=== PATIENT | male | born 1960 | race Caucasian/White ===

== ENCOUNTER 2019-05-24 10:05 | Day surgery (SDC) | payer OTHER, SELFPAY ==
[2019-05-23 09:24] VITALS: BMI 33.0
[2019-05-24] VITALS (8 sets, daily range): BP systolic 124–151; BP diastolic 74–92; PULSE 70–88; RESP 11–15; TEMP 35.6–36.8; O2SAT 93–98; BMI 33.0
[2019-05-24] MEDS: LACTATED RINGERS 1,000 ML 42 ML IV ×2 (10:33→13:55)
[2019-05-24] MEDS: fentaNYL 100 MCG/2 ML INJ 50 MCG IV ×2 (12:23→12:33)
[2019-05-24] MEDS: MIDAZOLAM 2 MG/2 ML VIAL IV (12:23)
--- NOTE | 2019-05-24 12:45 | SUR.PREOP ---
Block start time [1323] . Monitoring initiated and maintained throughout procedure. Oxygen and medications given per anesthesiologist instructions. Patient remained stable throughout procedure, no adverse reactions noted. Block end time [1333].
[2019-05-24] MEDS: CEFAZOLIN 2 GM/100 ML FROZ.PIGGY IV (12:47)
--- NOTE | 2019-05-24 12:53 | PM.PREOP ---
Pre-operative Note Interval Note History & Physical reviewed/Exam performed by Physician: Yes Changes to H&P: No
[2019-05-24] MEDS: BUPIVACAINE 0.5% W/ EPI (PF) VIAL 30 ML INJ (13:28)
[2019-05-24] MEDS: SODIUM CHLORIDE IRRIG SOLUTION 3,000 ML, EPINEPHrine 1 MG IRR ×2 (13:29→13:31)
--- NOTE | 2019-05-24 13:36 | SUR.OPER ---
Beach chair with [employer]tron shoulder positioner. Lower body on padded OR bed. Head in foam padded head cradle, secured with straps. Non-operative arm secured <90 degrees abduction. Pillow under knees. Safety belt at thigh. Cloth tape over blanket over lower legs.
--- NOTE | 2019-05-24 14:51 | PM.OP.1 ---
Operative Date/Time/Diagnoses Date of procedure: 05/24/19 Time of procedure: 13:00 Pre-op diagnosis: Right shoulder massive rotator cuff tear Post-op diagnosis: same Procedure & Clinicians Procedure: arthroscopic rotator cuff repair as well as subacromial decompression, distal clavicle excision, extensive debridement of the glenohumeral joint. Same procedure as scheduled: Yes Indications: Massive rotator cuff tear Surgeon: Taurus Herrera Employee Welfare Manager: Adelaida Padilla Anesthesia Type: General and Peripheral nerve block Operative Notes Findings: complete tear of the infraspinatus and supraspinatus with about 3 cm of retraction. No sign of any teres minor or subscapularis tearing. Degenerative changes to the labrum but no significant arthritic changes to the glenohumeral joint. 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 Small loose body attached to the anterior labral tissue. No sign of any Bankart tear. Early stage degenerative changes of the biceps tendon but no significant tearing. No sign of any type 2 slap tear or extension into the bicipital anchor. Quite a bit of the synovitis and bursitis in the subdeltoid and subacromial space. Closure Type: primary Applied: implant(s) ( Arthrex speed bridge implants for rotator cuff repair. Total of 4 anchors.) Estimated Blood Loss (mL): 5 Blood products transfused: none Procedure in detail: On date of service, Patient was met in the holding area. The operative site was signed and witnessed by the OR staff. The surgeries once again discussed with the patient and any remaining questions they had were answered fully. Patient was taken back to the operating theater and placed on the operating table in a supine position. Great care was taken to ensure that all bony prominences were properly padded. Patient was then placed into the beach chair position. The head and neck were properly positioned and secured. A timeout was performed verifying patient's name, procedure, and the operative site. The upper extremity was then prepped and draped in the normal sterile fashion. Previously, the bony anatomy and portal sites were marked out as well as injected with Marcaine with epinephrine. An 11 blade was used to make an incision in the posterior aspect of the shoulder. The camera was placed, and a diagnostic shoulder scope was performed. Findings listed above. Next under direct visualization, a anterior portal was made. Shaver was brought in and extensive debridement of the degenerative changes to the labrum was performed. A grasper was used to remove the small loose body that was attached to the soft tissue in the anterior aspect of the shoulder joint. Some debridement of some degenerative changes of the proximal biceps was performed as well. Next the camera was placed into the subacromial space. A lateral portal was obtained under direct visualization. A combination of the shaver and vapor wand, a debridement of the inflamed tissue as well as inflamed bursa was performed. The lateral gutter was also cleaned out. There was a significant amount of bursitis and synovitis in both the subacromial and subdeltoid space. After this was all cleaned out, This gave us good visualization of the bursal aspect of the rotator cuff as well as the acromial arch. There was an obvious impingement lesion in the acromial arch. Next we turned our attention to the subacromial decompression. Next, a mechanical rasp was then used to do a subacromial decompression. This allowed us to convert the acromion to a type I acromial. This also allowed us to shave down the bony lesion in the acromial space. The rasp was placed into the lateral portal as well as the anterior portal in order to do a complete subacromial decompression. We next turned our attention to the distal clavicle. Using the shaver in the vapor wand we were able to clean out all the soft tissue around the distal clavicle as well as into the a.c. joint. This gave us good visualization of the arthritic changes to the distal clavicle as well as good of the a.c. joint allowing us to assess our distal clavicle excision. Of the inferior osteophytes coming off the distal clavicle. Using the mechanical rasp in the anterior portal, we were able to remove the inferior osteophytes as well as do a distal clavicle excision. The camera was then placed into the anterior portal which gave us a direct visualization of the a.c. joint allowing us to assess the distal clavicle excision. We then turned our attention to the rotator cuff tear. Patient had a very large tear involving the rotator cuff. The entire supraspinatus and infraspinatus was torn from the greater tuberosity and retracted a few cm. Due to the acute nature of the tear the cuff was still very mobile and had not scarred in at all. We could very easily pull it back to the rotator cuff footprint. Using the bur, the rotator cuff footprint was decorticated down to bleeding bone. Next, 2 medial anchors were placed. One anteriorly 1 posteriorly. Each anchor had 2 strands of fiber tape for a speed bridge repair. The sutures from the posterior anchor were passed through the posterior aspect of the infraspinatus. Then the sutures from the anterior anchor was passed through the anterior aspect of the supraspinatus. When pulling on the sutures we were able to reduce both the supraspinatus and infraspinatus to their respective footprints. Next, a punch was used to make a hole in the bone for the 2 medial anchors. This was done also anteriorly and posteriorly. A single suture from the anterior medial anchor and a single suture from the posterior medial anchor were placed into the anterior lateral anchor allowing us to tenodesis the rotator cuff across the rotator cuff footprint for the supraspinatus. This was then repeated with the remaining suture both anteriorly and posteriorly. And these 2 sutures were placed into the posterior medial anchor and tenodesis posteriorly providing a crisscross pattern providing a secure repair of both the supraspinatus and infraspinatus. Before the row repair most of the humeral head was exposed. After the repair there was good coverage of the entire humeral head and a very secure repair of the rotator cuff. Shoulder was taken through range of motion and there was no sign of any other tearing. No sign of any impingement lesions. Camera and cannulas were removed. Portal sites were closed. Patient's shoulder was cleaned, dried, and dressed. Patient was extubated and taken to the PACU in stable condition. Complications: none Post-operative Condition: stable Disposition: PACU Plan for aftercare: Patient will be in a sling for 6 weeks and follow our postoperative protocol for rotator cuff repair.
--- NOTE | 2019-05-24 15:25 | SUR.PHASEI ---
Pt began moving impulsively soon after arrival from OR. Restrained arms loosely for safety. Pt currently lying calmly in bed.
--- NOTE | 2019-05-24 15:46 | SUR.PHASEI ---
Multiple small areas of superficial skin loss to rt neck and upper chest. Also to rt chest below the shoulder dressing.
--- NOTE | 2019-05-24 17:59 | SUR.PHASEII ---
Per Isabela, dressing placed on pt's rt trunk.
== END 2019-05-24 16:40 | disposition home or self-care (01) ==
PROVIDERS: PCP Family Medicine; Visit Provider Orthopaedic Surgery
PROC: (CPT 29827; principal; 2019-05-24 12:15)
DX: S46.011A Strain of muscle(s) and tendon(s) of the rotator cuff of right shoulder, initial encounter (principal); G89.18 Other acute postprocedural pain; E66.9 Obesity, unspecified; Z68.32 Body mass index [BMI] 32.0-32.9, adult; M25.711 Osteophyte, right shoulder; M71.9 Bursopathy, unspecified; M65.811 Other synovitis and tenosynovitis, right shoulder
CPT/HCPCS: 29827; 29826; 29823; 29824; 64415; J0171; J0690; J1100; J2250; J2405; J2704; J3010